=== PATIENT | male | born 1990 ===

== ENCOUNTER 2017-01-16 21:32 | Emergency (ER) | payer OTHER ==
[2017-01-16 21:32] VITALS: BMI 29.9
[2017-01-16 22:07] VITALS: BP 130/78; RESP 20; TEMP 98; O2SAT 98
--- NOTE | 2017-01-16 23:10 | ED PDOC ---
HPI: Skin/Bite Injury Time Seen by Provider: 01/16/17 22:45 Chief Complaint (Nursing): Abnormal Skin Integrity Chief Complaint (Provider): Laceration History Per: Patient Additional Complaint(s): pt arrives for eval of laceration to the left hand. Pt was at work when a glass broke in his hand. hx of asthma; deneis additional medical hx TFavioladap is UTD Past Medical History Reviewed: Nursing Documentation, Vital Signs Vital Signs: Last Vital Signs Temp 98 F 01/16/17 22:04 Pulse 110 H 01/16/17 22:04 Resp 20 01/16/17 22:04 BP 130/78 01/16/17 22:04 Pulse Ox 98 01/16/17 22:04 - Medical History PMH: Asthma, Bipolar Disorder Denies: Depression, Chronic Kidney Disease - Surgical History Surgical History: Tonsillectomy - Family History Family History: States: Unknown Family Hx - Living Arrangements Living Arrangements: With Family - Social History Current smoker - smoking cessation education provided: No Alcohol: Social Drugs: Cannabis - Immunization History Hx Tetanus Toxoid Vaccination: No Hx Influenza Vaccination: No Hx Pneumococcal Vaccination: No - Home Medications Home Medications: Ambulatory Orders Medication Instructions Recorded Albuterol HFA [Ventolin HFA 90 2 puff IH [id number] PRN 06/26/16 mcg/actuation (8 g)] Azithromycin [Zithromax Tri-Joe] 500 mg PO DAILY 06/26/16 Ibuprofen [Motrin] 600 mg PO Q6H PRN #20 tab 12/04/16 - Allergies Allergies/Adverse Reactions: Allergies Allergy/AdvReac Type Severity Reaction Status Date / Time No Known Allergies Allergy Verified 06/26/16 19:25 Review of Systems ROS Statement: Except As Marked, All Systems Reviewed And Found Negative Musculoskeletal: Positive for: Other (laceration) Physical Exam - Reviewed Nursing Documentation Reviewed: Yes Vital Signs Reviewed: Yes - Physical Exam Appears: Positive for: Well, Non-toxic, No Acute Distress Head Exam: Positive for: ATRAUMATIC, NORMAL INSPECTION, NORMOCEPHALIC Skin: Positive for: Normal Color, Warm, DRY Eye Exam: Positive for: EOMI, Normal appearance, PERRL ENT: Positive for: Normal ENT Inspection Neck: Positive for: Normal, Painless ROM Cardiovascular/Chest: Positive for: Regular Rate, Rhythm Respiratory: Positive for: CNT, Normal Breath Sounds Gastrointestinal/Abdominal: Positive for: Normal Exam, Bowel Sounds, Soft Back: Positive for: Normal Inspection Extremity: Positive for: Normal ROM Neurologic/Psych: Positive for: Alert, Oriented Comments: small 2 cm puncture wound to right webspace between first and 2nd digits. No active bleed - ECG O2 Sat by Pulse Oximetry: 98 Medical Decision Making Medical Decision Making: Site irrigated by content writer. and laceration dermabond repaired. Disposition - Clinical Impression Clinical Impression: Laceration - Patient ED Disposition Is Patient to be Admitted: No - Disposition Disposition: Routine/Home Disposition Time: 23:12 Condition: STABLE - POA Present On Arrival: None
[2017-01-16 23:35] VITALS: PULSE 89
== END 2017-01-16 23:35 | disposition home or self-care (01) ==
LOC: H.ER 21:32
DX: S61.412A Laceration without foreign body of left hand, initial encounter (principal); W25.XXXA Contact with sharp glass, initial encounter; Y99.0 Civilian activity done for income or pay

== ENCOUNTER 2017-01-17 21:01 | Emergency (ER) | payer OTHER ==
[2017-01-17 21:01] VITALS: BMI 29.9
[2017-01-17 22:07] VITALS: BP 132/59; PULSE 80; RESP 16; TEMP 98.5; O2SAT 97
--- NOTE | 2017-01-17 22:35 | ED PDOC ---
HPI: Wound Care - HPI Time Seen by Provider: 01/17/17 22:15 Chief Complaint (Nursing): Wound Check History Per: Patient History Of Present Illness: Pt. states yesterday he sustained a laceration to the R thumb area which he had repaired here with dermabond. Pt. is concerned he may have reopened the wound when he used the thumb today. Past Medical History Reviewed: Historical Data, Nursing Documentation, Vital Signs Vital Signs: Last Vital Signs Temp 98.5 F 01/17/17 22:05 Pulse 80 01/17/17 22:05 Resp 16 01/17/17 22:05 BP 132/59 L 01/17/17 22:05 Pulse Ox 97 01/17/17 22:05 - Medical History PMH: Asthma, Bipolar Disorder Denies: Depression, Chronic Kidney Disease - Surgical History Surgical History: Tonsillectomy - Family History Family History: States: Unknown Family Hx - Immunization History Hx Tetanus Toxoid Vaccination: No Hx Influenza Vaccination: No Hx Pneumococcal Vaccination: No - Home Medications Home Medications: Ambulatory Orders Medication Instructions Recorded Albuterol HFA [Ventolin HFA 90 2 puff IH [id number] PRN 06/26/16 mcg/actuation (8 g)] Azithromycin [Zithromax Tri-Joe] 500 mg PO DAILY 06/26/16 Ibuprofen [Motrin] 600 mg PO Q6H PRN #20 tab 12/04/16 Ibuprofen [Motrin] 600 mg PO Q6 #20 tab 01/16/17 - Allergies Allergies/Adverse Reactions: Allergies Allergy/AdvReac Type Severity Reaction Status Date / Time No Known Allergies Allergy Verified 06/26/16 19:25 Review of Systems ROS Statement: Except As Marked, All Systems Reviewed And Found Negative Physical Exam - Physical Exam Appears: Positive for: Well, Non-toxic, No Acute Distress Skin: Positive for: Normal Color, Warm. Negative for: Rash Extremity: Positive for: Normal ROM, Other (1st interdigital websapce with healing wound with dermabond still in place without surrounding erythema or dehisence) - ECG O2 Sat by Pulse Oximetry: 97 - Progress ED Course And Treament: New DSD applied to wound. Velcro thumb spica splint applied. Disposition - Clinical Impression Clinical Impression: Visit for wound check - Patient ED Disposition Is Patient to be Admitted: No - Disposition Disposition: Routine/Home Disposition Time: 22:35 Condition: STABLE Instructions: Skin Adhesive Care (ED) Forms: [facility] ED School/Work Excuse Print Language: FAROESE
== END 2017-01-17 22:44 | disposition home or self-care (01) ==
LOC: H.ER 21:01
DX: Z48.00 Encounter for change or removal of nonsurgical wound dressing (principal); F31.9 Bipolar disorder, unspecified; J45.909 Unspecified asthma, uncomplicated

== ENCOUNTER 2017-01-19 17:25 | Emergency (ER) | payer OTHER ==
[2017-01-19 17:26] VITALS: BMI 29.9
[2017-01-19 17:47] VITALS: BP 112/71; PULSE 56; RESP 18; TEMP 98.2; O2SAT 99
--- NOTE | 2017-01-19 17:56 | ED PDOC ---
HPI: Wound Care - HPI Time Seen by Provider: 01/19/17 17:48 Chief Complaint (Nursing): Wound Check Chief Complaint (Provider): Wound Check History Per: Patient Exam Limitations: no limitations Onset/Duration Of Symptoms: Hrs Current Symptoms Are (Timing): Still Present Severity: Mild Additional Complaint(s): Patient is a 26 year old male presenting to the ED for wound check of right thumb. He states on 01/16/17 he had laceration repaired on the thumb with dermabond. Patient concerned dermabond has peeled off and wound is open. Denies fever, discharge. PMD: none Past Medical History Vital Signs: Last Vital Signs Temp 98.2 F 01/19/17 17:43 Pulse 56 L 01/19/17 17:43 Resp 18 01/19/17 17:43 BP 112/71 01/19/17 17:43 Pulse Ox 99 01/19/17 17:43 - Medical History PMH: Asthma, Bipolar Disorder Denies: Depression, Chronic Kidney Disease - Surgical History Surgical History: Tonsillectomy - Family History Family History: States: Unknown Family Hx - Immunization History Hx Tetanus Toxoid Vaccination: No Hx Influenza Vaccination: No Hx Pneumococcal Vaccination: No - Home Medications Home Medications: Ambulatory Orders Medication Instructions Recorded Albuterol HFA [Ventolin HFA 90 2 puff IH [id number] PRN 06/26/16 mcg/actuation (8 g)] Azithromycin [Zithromax Tri-Joe] 500 mg PO DAILY 06/26/16 Ibuprofen [Motrin] 600 mg PO Q6H PRN #20 tab 12/04/16 Ibuprofen [Motrin] 600 mg PO Q6 #20 tab 01/16/17 - Allergies Allergies/Adverse Reactions: Allergies Allergy/AdvReac Type Severity Reaction Status Date / Time No Known Allergies Allergy Verified 06/26/16 19:25 Review of Systems ROS Statement: Except As Marked, All Systems Reviewed And Found Negative Physical Exam - Reviewed Nursing Documentation Reviewed: Yes Vital Signs Reviewed: Yes - Physical Exam Appears: Positive for: Well, Non-toxic, No Acute Distress Extremity: Positive for: Normal ROM, Other (1st interdigital webspace on R hand with dermabond in place without dehisence, discharge, swelling, or erythema) Neurologic/Psych: Positive for: Alert, Oriented - ECG O2 Sat by Pulse Oximetry: 99 (RA) Pulse Ox Interpretation: Normal - Progress ED Course And Treament: DSD applied to wound. Pt. informed that dermabond will eventually peel off and that this is expected. Wound care instructions given. Medical Decision Making Medical Decision Making: Time: 17:50 Impression: wound check Plan: Discussed results and plan with patient who expresses understanding. Counseling was provided regarding the diagnosis and prognosis. All questions answered and there is agreement with the plan to discharge home with instructions. Patient stable for discharge. Return if symptoms persist or worsen. Scribe Attestation: Documented by Lisa Hugo acting as a scribe for Marco Brandt. Provider Attestation: All medical record entries made by the Scribe were at my direction and personally dictated by me. I have reviewed the chart and agree that the record accurately reflects my personal performance of the history, physical exam, medical decision making, and the department course for this patient. I have also personally directed, reviewed, and agree with the discharge instructions and disposition. Disposition - Clinical Impression Clinical Impression: Visit for wound check - Patient ED Disposition Is Patient to be Admitted: No Counseled Patient/Family Regarding: Studies Performed, Diagnosis - Disposition Disposition: Routine/Home Disposition Time: 17:56 Condition: STABLE Instructions: Skin Adhesive Care (ED) Print Language: SERBIAN
== END 2017-01-19 18:01 | disposition home or self-care (01) ==
LOC: H.ER 17:25
DX: Z48.00 Encounter for change or removal of nonsurgical wound dressing (principal); F31.9 Bipolar disorder, unspecified; J45.909 Unspecified asthma, uncomplicated

== ENCOUNTER 2017-02-20 18:38 | Emergency (ER) | payer OTHER ==
[2017-02-20 18:38] VITALS: BMI 29.9
[2017-02-20 18:53] VITALS: BP 139/67; PULSE 83; RESP 20; TEMP 99; O2SAT 97
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
--- NOTE | 2017-02-21 10:50 | RAD ---
PROCEDURE: Radiographs of the Lumbar Spine. HISTORY: pain COMPARISON: None available. FINDINGS: BONES: Alignment appears satisfactory. No listhesis. No acute displaced fracture identified. DISC SPACES: Unremarkable. OTHER FINDINGS: None. IMPRESSION: No acute displaced fracture or subluxation identified.
== END 2017-02-20 20:45 | disposition home or self-care (01) ==
LOC: H.ER 18:38
DX: M54.9 Dorsalgia, unspecified (principal); F31.9 Bipolar disorder, unspecified; J45.909 Unspecified asthma, uncomplicated

== ENCOUNTER 2018-12-23 11:40 | Emergency (ER) | payer OTHER, MEDICAID ==
[2018-12-23 11:47] VITALS: BMI 29.2
[2018-12-23 11:48] VITALS: BP 128/69; PULSE 88; RESP 18; TEMP 98.4
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
[2018-12-23 14:36] VITALS: O2SAT 100
== END 2018-12-23 13:50 | disposition home or self-care (01) ==
LOC: H.ER 11:40
DX: M25.511 Pain in right shoulder (principal)
CPT/HCPCS: 96372; 99283; J1885